=== PATIENT | female | born 1985 | race Caucasian/White ===

== ENCOUNTER 2018-01-23 20:46 | Emergency (ER) | payer MEDICAID ==
[2018-01-23] MEDS: SOD CHLORIDE 0.9% 1,000 ML IV (21:44)
[2018-01-23] MEDS: DIPHENHYDRAMINE 50 MG INJ IV (21:45)
[2018-01-23] MEDS: EPINEPHrine 1 MG INJ SC (21:45)
[2018-01-23] MEDS: METHYLPREDNISOLONE 125 MG INJ IV (21:45)
[2018-01-23] MEDS: FAMOTIDINE 20 MG INJ IV (21:45)
== END 2018-01-23 22:47 | disposition home or self-care (01) ==
LOC: FTE 20:46
DX: T78.1XXA Other adverse food reactions, not elsewhere classified, initial encounter (principal)
CPT/HCPCS: 96372; 96374; 96375; 99284-25